=== PATIENT | male | born 1940 | race Caucasian/White ===

== ENCOUNTER → 2017-11-18 | Outpatient (CLI) | payer MEDICARE, BC | END | disposition home or self-care (01) | LOC: CDC 09:32 | DX: Z01.810 Encounter for preprocedural cardiovascular examination (principal); K62.5 Hemorrhage of anus and rectum; I45.10 Unspecified right bundle-branch block | CPT/HCPCS: 93000 ==

== ENCOUNTER 2017-12-12 14:04 | Day surgery (SDC) | payer OTHER, BC ==
[~2017-12-12] VITALS: Ht 172.7 cm; Wt 95.0 kg
[~2017-12-12 14:04] MED LIST: DAILY VALUE1 EACH PO; FENOFIBRATE160 M1 PO; GLUCOPHAGE1000 MG PO; GLUCOTROL10 MG PO; LO-DOSE ASPIRIN81 M2 PO; VASERETIC 101 TABLET PO
[2017-12-12 14:29] VITALS: BP 142/70
[2017-12-12] MEDS ORDERED: NORCO 5/3251 TABLET PO (19:49)
[2017-12-12 20:10] VITALS: BP 156/75
[2017-12-12 20:39] VITALS: BP 150/82
== END 2017-12-12 20:49 | disposition home or self-care (01) ==
LOC: SDC 14:04
PROVIDERS: Surgery
PROC: 0DBP7ZZ Excision of Rectum, Via Natural or Artificial Opening (ICD-10-PCS; principal; 2017-12-12)
DX: C20 Malignant neoplasm of rectum (principal); K62.1 Rectal polyp; I10 Essential (primary) hypertension; E11.9 Type 2 diabetes mellitus without complications; Z79.84 Long term (current) use of oral hypoglycemic drugs; Z79.82 Long term (current) use of aspirin
CPT/HCPCS: 82948; 88307; J1100; J1885; J2250; J2270; J2405; S0020; S0074